=== PATIENT | female | born 1995 | race American Indian/Alaskan Native ===

== ENCOUNTER 2019-07-18 15:29 | Emergency (ER) | payer OTHER ==
[2019-07-18 15:37] VITALS: BP 106/66
--- NOTE | 2019-07-18 15:41 | Emergency Department Report ---
ED ENT HPI - General Chief complaint: Earache Stated complaint: R EAR PAIN/INFECTION Time Seen by Provider: 07/18/19 15:40 Source: patient Mode of arrival: Ambulatory Limitations: No Limitations - Related Data Previous Rx's Medication Instructions Recorded Last Taken Type DOXYCYCLINE Hyclate [Vibramycin 100 mg PO BID 14 Days capsule 03/19/14 Unknown Rx CAP] Fluconazole [Diflucan] 150 mg PO QDAY #1 tablet 03/19/14 Unknown Rx Allergies Allergy/AdvReac Type Severity Reaction Status Date / Time No Known Allergies Allergy Unverified 03/19/14 02:05 ED Dental HPI - General Chief complaint: Earache Stated complaint: R EAR PAIN/INFECTION Time Seen by Provider: 07/18/19 15:40 Source: patient Mode of arrival: Ambulatory Limitations: No Limitations - Related Data Previous Rx's Medication Instructions Recorded Last Taken Type DOXYCYCLINE Hyclate [Vibramycin 100 mg PO BID 14 Days capsule 03/19/14 Unknown Rx CAP] Fluconazole [Diflucan] 150 mg PO QDAY #1 tablet 03/19/14 Unknown Rx Allergies Allergy/AdvReac Type Severity Reaction Status Date / Time No Known Allergies Allergy Unverified 03/19/14 02:05 ED Review of Systems ROS: Stated complaint: R EAR PAIN/INFECTION Other details as noted in HPI ED Past Medical Hx - Past Medical History Previous Medical History?: No - Surgical History Past Surgical History?: No - Social History Smoking Status: Never Smoker Substance Use Type: None - Medications Home Medications: Home Medications Medication Instructions Recorded Confirmed Last Taken Type DOXYCYCLINE Hyclate [Vibramycin 100 mg PO BID 14 Days capsule 03/19/14 Unknown Rx CAP] Fluconazole [Diflucan] 150 mg PO QDAY #1 tablet 03/19/14 Unknown Rx ED Physical Exam - General Limitations: No Limitations ED Course Vital Signs 07/18/19 15:35 Temperature 99.4 F Pulse Rate 88 Respiratory 16 Rate Blood Pressure 106/66 O2 Sat by Pulse 98 Oximetry Critical care attestation.: If time is entered above; I have spent that time in minutes in the direct care of this critically ill patient, excluding procedure time. ED Disposition Condition: Stable
--- NOTE | 2019-07-18 15:54 | Emergency Department Report ---
Blank Doc - Documentation Documentation: 23-year-old female that presents with right sided earache. Exam shows a foreign body. This initial assessment/diagnostic orders/clinical plan/treatment(s) is/are subject to change based on patient's health status, clinical progression and re- assessment by fellow clinical providers in the ED. Further treatment and workup at subsequent clinical providers discretion. Patient/guardians urged not to elope from the ED as their condition may be serious if not clinically assessed and managed. Initial orders include: 1- Patient sent to [facility] for further evaluation and treatment
[2019-07-18] MEDS ORDERED: IBUPROFEN 800 MG TAB PO ONE (17:15)
[2019-07-18] MEDS ORDERED: AMOXICILLIN/K CLAV 875/125MG TAB PO ONE (17:15)
--- NOTE | 2019-07-18 17:21 | Emergency Department Report ---
ED ENT HPI - General Chief complaint: Earache Stated complaint: R EAR PAIN/INFECTION Time Seen by Provider: 07/18/19 15:40 Source: patient Mode of arrival: Ambulatory Limitations: No Limitations - History of Present Illness Initial comments: Ginna is a very pleasant 23-year-old female who presents with right ear pain and decreased hearing in the ear. She has copious amount of drainage. She does use Q-tips. My colleague was concern for foreign body. This is her fourth potential ear infection this year since January. complaint: ear pain -: Gradual, days(s) (6) Location: R ear Severity: moderate Severity scale (0 -10): 7 Quality: aching Consistency: constant Improves with: none Worsens with: none Associated Symptoms: fever, hearing loss - Related Data Previous Rx's Medication Instructions Recorded Last Taken Type DOXYCYCLINE Hyclate [Vibramycin 100 mg PO BID 14 Days capsule 03/19/14 Unknown Rx CAP] Fluconazole [Diflucan] 150 mg PO QDAY #1 tablet 03/19/14 Unknown Rx Amoxicillin/Potassium Clav 1 each PO BID 20 Days #10 tablet 07/18/19 Unknown Rx [Augmentin 875-125 Tablet] Ibuprofen [Motrin 800 MG tab] 800 mg PO Q8HR PRN #15 tablet 07/18/19 Unknown Rx Allergies Allergy/AdvReac Type Severity Reaction Status Date / Time No Known Allergies Allergy Unverified 03/19/14 02:05 ED Dental HPI - General Chief complaint: Earache Stated complaint: R EAR PAIN/INFECTION Time Seen by Provider: 07/18/19 15:40 Source: patient Mode of arrival: Ambulatory Limitations: No Limitations - History of Present Illness MD complaint: ear pain - Related Data Previous Rx's Medication Instructions Recorded Last Taken Type DOXYCYCLINE Hyclate [Vibramycin 100 mg PO BID 14 Days capsule 03/19/14 Unknown Rx CAP] Fluconazole [Diflucan] 150 mg PO QDAY #1 tablet 03/19/14 Unknown Rx Amoxicillin/Potassium Clav 1 each PO BID 20 Days #10 tablet 07/18/19 Unknown Rx [Augmentin 875-125 Tablet] Ibuprofen [Motrin 800 MG tab] 800 mg PO Q8HR PRN #15 tablet 07/18/19 Unknown Rx Allergies Allergy/AdvReac Type Severity Reaction Status Date / Time No Known Allergies Allergy Unverified 03/19/14 02:05 ED Review of Systems ROS: Stated complaint: R EAR PAIN/INFECTION Other details as noted in HPI Constitutional: fever, malaise ENT: ear pain. denies: throat pain, congestion Respiratory: denies: cough, shortness of breath Gastrointestinal: denies: abdominal pain, nausea, vomiting Skin: denies: rash ED Past Medical Hx - Past Medical History Previous Medical History?: No - Surgical History Past Surgical History?: No - Social History Smoking Status: Never Smoker Substance Use Type: None - Medications Home Medications: Home Medications Medication Instructions Recorded Confirmed Last Taken Type DOXYCYCLINE Hyclate [Vibramycin 100 mg PO BID 14 Days capsule 03/19/14 Unknown Rx CAP] Fluconazole [Diflucan] 150 mg PO QDAY #1 tablet 03/19/14 Unknown Rx Amoxicillin/Potassium Clav 1 each PO BID 20 Days #10 tablet 07/18/19 Unknown Rx [Augmentin 875-125 Tablet] Ibuprofen [Motrin 800 MG tab] 800 mg PO Q8HR PRN #15 tablet 07/18/19 Unknown Rx ED Physical Exam - General Limitations: No Limitations General appearance: alert, in no apparent distress - Head Head exam: Present: atraumatic, normocephalic - Eye Eye exam: Present: other (right tympanic membrane: Retracted TM exudate seen in the auditory canal erythematous canal) - Neck Neck exam: Present: normal inspection, full ROM - Respiratory Respiratory exam: Absent: respiratory distress - Neurological Exam Neurological exam: Present: alert, oriented X3 - Psychiatric Psychiatric exam: Present: normal affect, normal mood - Skin Skin exam: Present: warm, dry, intact, normal color ED Course Vital Signs 07/18/19 15:35 Temperature 99.4 F Pulse Rate 88 Respiratory 16 Rate Blood Pressure 106/66 O2 Sat by Pulse 98 Oximetry ED Medical Decision Making - Medical Decision Making Right otitis media with TM perforation: Given written and verbal education. Prescribed Augmentin. Referred to ENT. Critical care attestation.: If time is entered above; I have spent that time in minutes in the direct care of this critically ill patient, excluding procedure time. ED Disposition Clinical Impression: Right otitis media with spontaneous rupture of eardrum Disposition: TO HOME OR SELFCARE Is pt being admited?: No Does the pt Need Aspirin: No Condition: Stable Instructions: Ruptured Eardrum (ED), Otitis Media (ED) Prescriptions: Amoxicillin/Potassium Clav [Augmentin 875-125 Tablet] 1 each PO BID 20 Days #10 tablet Ibuprofen [Motrin 800 MG tab] 800 mg PO Q8HR PRN #15 tablet PRN Reason: Pain , Severe (7-10) Referrals: ALECIA MANRIQUEZ MD [Staff Physician] - 3-5 Days Forms: Work/School Release Form(ED)
== END 2019-07-18 18:37 | disposition home or self-care (01) ==
LOC: ED 15:29
DX: H66.91 Otitis media, unspecified, right ear (principal); E78.00 Pure hypercholesterolemia, unspecified
CPT/HCPCS: 99282

== ENCOUNTER 2020-05-17 13:09 | Emergency (ER) | payer OTHER ==
[2020-05-17 14:06] LABS: Bacteria,Urine 4+ /HPF (Negative); Bilirubin,Urine NEG (Negative); Blood,Urine NEG (Negative); Color,Urine Yellow (Yellow); Mucus,Urine FEW /HPF; Protein,Urine <15 mg/dL mg/dL (Negative); Urobilinogen,Urine < 2.0 mg/dL (<2.0)
--- NOTE | 2020-05-17 14:16 | Event Note ---
ED Screening Note Date of service: 05/17/20 Time: 14:13 ED Screening Note: Patient presents with complaints of bilateral flank pain, body aches and chills, and worsening urinary tract infection x3 days States symptoms have been worsening since finishing her antibiotic that was prescribed for 7 days by her PCP for UTI Patient states history of sepsis and ICU admission due to a severe UTI in the past She is afebrile and non-tachycardic and denies taking any Tylenol or ibuprofen today Bilateral CVA tenderness noted on exam without abdominal tenderness This initial assessment/diagnostic orders/clinical plan/treatment(s) is/are subject to change based on patients health status, clinical progression and re- assessment by fellow clinical providers in the ED. Further treatment and workup at subsequent clinical providers discretion. Patient/guardian urged not to elope from the ED as their condition may be serious if not clinically assessed and managed. Initial orders include: Labs
[2020-05-17 15:21] LABS: Basophils # (Auto) 0.1 K/mm3 (0.0-0.1); Basophils % (Auto) 1.2 % (0.0-1.8); Eosinophils # (Auto) 0.1 K/mm3 (0.0-0.4); Eosinophils % (Auto) 2.7 % (0.0-4.3); Hematocrit 41.9 % (30.3-42.9); Hemoglobin 13.9 gm/dl (10.1-14.3); Lymphocytes # (Auto) 2.2 K/mm3 (1.2-5.4); Lymphocytes % (Auto) 40.4 % (13.4-35.0); Mean Corpuscular HGB Conc 33 % (30-34); Mean Corpuscular Volume 95 fl (79-97); Monocytes # (Auto) 0.3 K/mm3 (0.0-0.8); Platelet Count 321 K/mm3 (140-440); Red Blood Count 4.43 M/mm3 (3.65-5.03); Red Cell Distribution Width 13.4 % (13.2-15.2)
[2020-05-17 15:44] LABS: Alanine Aminotransferase 15 units/L (7-56); Albumin 4.4 g/dL (3.9-5); Blood Urea Nitrogen 12 mg/dL (7-17); Calcium 10.1 mg/dL (8.4-10.2); Hemolysis Index 0
[2020-05-17 15:45] LABS: BUN/Creatinine Ratio 17
--- NOTE | 2020-05-17 17:46 | Emergency Department Report ---
ED Female HPI - General Chief complaint: Urogenital-Female Stated complaint: UTI, BLOOD IN URINE Source: patient Mode of arrival: Ambulatory Limitations: No Limitations - History of Present Illness Initial comments: Patient presents with complaints of bilateral flank pain, body aches and chills, and worsening urinary tract infection x3 days States symptoms have been worsening since finishing her antibiotic that was prescribed for 7 days by her PCP for UTI Patient states history of sepsis and ICU admission due to a severe UTI in the past. Patient reports that she was taken Augmentin 500 mg twice a day. - Related Data Previous Rx's Medication Instructions Recorded Last Taken Type DOXYCYCLINE Hyclate [Vibramycin 100 mg PO BID 14 Days capsule 03/19/14 Unknown Rx CAP] Fluconazole [Diflucan] 150 mg PO QDAY #1 tablet 03/19/14 Unknown Rx Amoxicillin/Potassium Clav 1 each PO BID 20 Days #10 tablet 07/18/19 Unknown Rx [Augmentin 875-125 Tablet] Ibuprofen [Motrin 800 MG tab] 800 mg PO Q8HR PRN #15 tablet 07/18/19 Unknown Rx Nitrofurantoin [place]/M-Cryst 100 mg PO Q12HR 10 Days #20 capsule 05/17/20 Unknown Rx [Macrobid CAP] Allergies Allergy/AdvReac Type Severity Reaction Status Date / Time No Known Allergies Allergy Verified 05/17/20 13:13 ED Review of Systems ROS: Stated complaint: UTI, BLOOD IN URINE Other details as noted in HPI ED Past Medical Hx - Past Medical History Previous Medical History?: No - Surgical History Additional Surgical History: T&A - Social History Smoking Status: Never Smoker Substance Use Type: None - Medications Home Medications: Home Medications Medication Instructions Recorded Confirmed Last Taken Type DOXYCYCLINE Hyclate [Vibramycin 100 mg PO BID 14 Days capsule 03/19/14 Unknown Rx CAP] Fluconazole [Diflucan] 150 mg PO QDAY #1 tablet 03/19/14 Unknown Rx Amoxicillin/Potassium Clav 1 each PO BID 20 Days #10 tablet 07/18/19 Unknown Rx [Augmentin 875-125 Tablet] Ibuprofen [Motrin 800 MG tab] 800 mg PO Q8HR PRN #15 tablet 07/18/19 Unknown Rx Nitrofurantoin [place]/M-Cryst 100 mg PO Q12HR 10 Days #20 capsule 05/17/20 Unkn own Rx [Macrobid CAP] ED Physical Exam - General Limitations: No Limitations General appearance: alert, in no apparent distress - Head Head exam: Present: atraumatic, normocephalic - Eye Eye exam: Present: normal appearance - ENT ENT exam: Present: mucous membranes moist - Neck Neck exam: Present: normal inspection - GI/Abdominal GI/Abdominal exam: Present: soft, normal bowel sounds. Absent: distended, tenderness, guarding - Extremities Exam Extremities exam: Present: normal inspection - Back Exam Back exam: Present: normal inspection - Neurological Exam Neurological exam: Present: alert, oriented X3, normal gait - Psychiatric Psychiatric exam: Present: normal affect, normal mood - Skin Skin exam: Present: warm, dry, intact, normal color. Absent: rash ED Course Vital Signs 05/17/20 13:15 Temperature 98.7 F Pulse Rate 91 H Respiratory 18 Rate Blood Pressure 112/71 O2 Sat by Pulse 98 Oximetry ED Medical Decision Making - Lab Data Result diagrams: 05/17/20 14:43 05/17/20 14:43 - Medical Decision Making Patient presents with complaints of bilateral flank pain, body aches and chills, and worsening urinary tract infection x3 days States symptoms have been worsening since finishing her antibiotic that was prescribed for 7 days by her PCP for UTI Patient states history of sepsis and ICU admission due to a severe UTI in the past Patient has taken Augmentin 500 mg twice a day recently. Urinalysis still shows that she has a urinary tract infection. I will place her on Macrobid encouraged her to increase her water intake she can take Tylenol or ibuprofen for pain. Repeat her urinalysis in 5 to 7 days at her [employer] [facility] [facility]. Critical care attestation.: If time is entered above; I have spent that time in minutes in the direct care of this critically ill patient, excluding procedure time. ED Disposition Clinical Impression: UTI (urinary tract infection) Disposition: [id number] TO HOME OR SELFCARE Is pt being admited?: No Does the pt Need Aspirin: No Condition: Stable Instructions: Urinary Tract Infection in Women (ED) Additional Instructions: Complete your antibiotics as prescribed. Increase your water intake. Tylenol or ibuprofen for pain. Follow-up with your [employer] [facility] for repeat urinalysis in 5 to 7 days. Prescriptions: Nitrofurantoin [place]/M-Cryst [Macrobid CAP] 100 mg PO Q12HR 10 Days #20 capsule Referrals: PRIMARY CARE, [Primary Care Provider] - 3-5 Days You are, [employer] [Other] - 3-5 Days Forms: Work/School Release Form(ED)
[2020-05-17 18:17] VITALS: BP 112/68
== END 2020-05-17 18:19 | disposition home or self-care (01) ==
LOC: ED 13:09
DX: N39.0 Urinary tract infection, site not specified (principal); Z79.1 Long term (current) use of non-steroidal anti-inflammatories (NSAID); Z79.2 Long term (current) use of antibiotics; Z79.899 Other long term (current) drug therapy
CPT/HCPCS: 36415; 80053; 81001; 85025; 87076; 87086; 87186; 99283

== ENCOUNTER 2020-06-01 18:06 | Emergency (ER) | payer OTHER ==
[2020-06-01 18:25] VITALS: BP 110/67
[2020-06-01 19:59] LABS: Bacteria,Urine 1+ /HPF (Negative); Bilirubin,Urine NEG (Negative); Blood,Urine NEG (Negative); Color,Urine Yellow (Yellow); Mucus,Urine 3+ /HPF; Protein,Urine <15 mg/dL mg/dL (Negative)
[2020-06-01 20:01] LABS: HCG Qualitative,Urine Negative (Negative)
== END 2020-06-01 23:11 | disposition left against medical advice (07) ==
LOC: ED 18:06
DX: N39.0 Urinary tract infection, site not specified (principal); Z53.21 Procedure and treatment not carried out due to patient leaving prior to being seen by health care provider
CPT/HCPCS: 81001; 81025; 87076; 87086; 87186

== ENCOUNTER 2020-06-02 12:48 | Emergency (ER) | payer OTHER ==
[2020-06-02 12:56] VITALS: BP 110/61
[2020-06-02] MEDS ORDERED: LIDOCAINE-MPF (1%) 10 MG/1 ML VIAL 5 ML INFILTRATI ONE (15:01)
[2020-06-02] MEDS ORDERED: AZITHROMYCIN 1 GM ORAL PWDR PACKET PO ONE (15:01)
--- NOTE | 2020-06-02 15:04 | Emergency Department Report ---
ED Female HPI - General Chief complaint: Urogenital-Female Stated complaint: UTI Time Seen by Provider: 06/02/20 14:58 Source: patient Mode of arrival: Ambulatory Limitations: No Limitations - History of Present Illness Initial comments: Patient is a 24-year-old female presents emergency room with complaints of UTI symptoms that began 4 days ago. She has associated dysuria, lower back pain, nausea, urinary frequency. She denies any vomiting, diarrhea, fever, vaginal discharge, vaginal irritation. She states that she went to her PACKAGING MACHINE OPERATOR a month ago and completed a course of antibiotics but she does not know the name of it. She states that she was then in the emergency department on 05/17/2020 and was prescribed Macrobid. Patient reports that her PACKAGING MACHINE OPERATOR tested her for STDs a month ago and she states they were normal. She states that she is sexually active without protection. Patient states that she uses Depo-Provera for control. She denies any past medical history. No allergies to medications. - Related Data Previous Rx's Medication Instructions Recorded Last Taken Type DOXYCYCLINE Hyclate [Vibramycin 100 mg PO BID 14 Days capsule 03/19/14 Unknown Rx CAP] Fluconazole [Diflucan] 150 mg PO QDAY #1 tablet 03/19/14 Unknown Rx Amoxicillin/Potassium Clav 1 each PO BID 20 Days #10 tablet 07/18/19 Unknown Rx [Augmentin 875-125 Tablet] Ibuprofen [Motrin 800 MG tab] 800 mg PO Q8HR PRN #15 tablet 07/18/19 Unknown Rx Nitrofurantoin [place]/M-Cryst 100 mg PO Q12HR 10 Days #20 capsule 05/17/20 Unknown Rx [Macrobid CAP] Ciprofloxacin HCl [Ciprofloxacin 500 mg PO BID 7 Days #14 tab 06/02/20 Unknown Rx TAB] Promethazine [Phenergan] 25 mg PO Q8HR PRN #8 tab 06/02/20 Unknown Rx Allergies Allergy/AdvReac Type Severity Reaction Status Date / Time No Known Allergies Allergy Verified 05/17/20 13:13 ED Review of Systems ROS: Stated complaint: UTI Other details as noted in HPI Comment: All other systems reviewed and negative ED Past Medical Hx - Past Medical History Previous Medical History?: No - Surgical History Past Surgical History?: No Additional Surgical History: T&A - Social History Smoking Status: Never Smoker Substance Use Type: None - Medications Home Medications: Home Medications Medication Instructions Recorded Confirmed Last Taken Type DOXYCYCLINE Hyclate [Vibramycin 100 mg PO BID 14 Days capsule 03/19/14 Unknown Rx CAP] Fluconazole [Diflucan] 150 mg PO QDAY #1 tablet 03/19/14 Unknown Rx Amoxicillin/Potassium Clav 1 each PO BID 20 Days #10 tablet 07/18/19 Unknown Rx [Augmentin 875-125 Tablet] Ibuprofen [Motrin 800 MG tab] 800 mg PO Q8HR PRN #15 tablet 07/18/19 Unknown Rx Nitrofurantoin [place]/M-Cryst 100 mg PO Q12HR 10 Days #20 capsule 05/17/20 Unknown Rx [Macrobid CAP] Ciprofloxacin HCl [Ciprofloxacin 500 mg PO BID 7 Days #14 tab 06/02/20 Unknown Rx TAB] Promethazine [Phenergan] 25 mg PO Q8HR PRN #8 tab 06/02/20 Unknown Rx ED Physical Exam - General Limitations: No Limitations General appearance: alert, in no apparent distress - Head Head exam: Present: atraumatic, normocephalic - Eye Eye exam: Present: normal appearance - ENT ENT exam: Present: mucous membranes moist - Respiratory Respiratory exam: Absent: respiratory distress, accessory muscle use - Cardiovascular Cardiovascular Exam: Present: regular rate, normal rhythm - GI/Abdominal GI/Abdominal exam: Present: soft. Absent: distended, tenderness, guarding, rebound, rigid - Back Exam Back exam: Absent: CVA tenderness (R), CVA tenderness (L) - Neurological Exam Neurological exam: Present: alert, oriented X3 - Psychiatric Psychiatric exam: Present: normal affect, normal mood - Skin Skin exam: Present: warm, dry, intact ED Course Vital Signs 06/02/20 12:55 Temperature 98.0 F Pulse Rate 83 Respiratory 16 Rate Blood Pressure 110/61 O2 Sat by Pulse 100 Oximetry ED Medical Decision Making - Medical Decision Making Patient is a 24-year-old female presents emergency room with complaints of UTI symptoms that began 4 days ago. She has associated dysuria, lower back pain, nausea, urinary frequency. She denies any vomiting, diarrhea, fever, vaginal discharge, vaginal irritation. She states that she went to her PACKAGING MACHINE OPERATOR a month ago and completed a course of antibiotics but she does not know the name of it. She states that she was then in the emergency department on 05/17/2020 and was prescribed Macrobid. Patient reports that her PACKAGING MACHINE OPERATOR tested her for STDs a month ago and she states they were normal. She states that she is sexually active without protection. Patient states that she uses Depo-Provera for control. She denies any past medical history. No allergies to medications. vitals are normal. Patient presented to the emergency room yesterday 06/01/2020 and give a urine sample at that time but left before the results came back and before being seen, it does show evidence of UTI with many white blood cells and leukocyte esterase. Patient's urine culture from 05/17/2020 shows Proteus mirabilis which is sensitive to fluoroquinolones. Patient given 1 g ceftriaxone and a gram azithromycin to cover for UTI and for STDs given that she is having frequent UTIs. Patient given prescription for ciprofloxacin and Phenergan. discussed risks of medication with pt. Advised patient please take medication as prescribed. increase your water intake. avoid strenuous exercise until two weeks after completion of medication. follow up with your primary care doctor or P[employer] MACHINE OPERATOR and have your urine retested for clearance of bacteria from your urine. return to the emergency room for any new or worsening symptoms. Critical care attestation.: If time is entered above; I have spent that time in minutes in the direct care of this critically ill patient, excluding procedure time. ED Disposition Clinical Impression: UTI (urinary tract infection) Qualifiers: Urinary tract infection type: acute cystitis Hematuria presence: without hematuria Qualified Code(s): N30.00 - Acute cystitis without hematuria Disposition: TO HOME OR SELFCARE Is pt being admited?: No Does the pt Need Aspirin: No Condition: Stable Instructions: Urinary Tract Infection in Women (ED) Additional Instructions: please take medication as prescribed. increase your water intake. avoid strenuous exercise until two weeks after completion of medication. follow up with your primary care doctor or P[employer] MACHINE OPERATOR and have your urine retested for clearance of bacteria from your urine. return to the emergency room for any new or worsening symptoms. Prescriptions: Ciprofloxacin HCl [Ciprofloxacin TAB] 500 mg PO BID 7 Days #14 tab Promethazine [Phenergan] 25 mg PO Q8HR PRN #8 tab PRN Reason: Nausea Referrals: your, primary care doctor [Other] - 3-5 Days Time of Disposition: 15:04 Print Language: CZECH
== END 2020-06-02 15:55 | disposition home or self-care (01) ==
LOC: ED 12:48
DX: N39.0 Urinary tract infection, site not specified (principal); Z79.899 Other long term (current) drug therapy
CPT/HCPCS: 96372; 99282; J0696